=== PATIENT | female | born 1990 | race Caucasian/White ===

== ENCOUNTER → 2016-11-29 | Outpatient (CLI) | payer BC ==
--- NOTE | 2016-11-29 09:40 | DI ---
EXAM: CERVICAL SPINE 4 OR 5 VIEWS DATE: 11/29/2016 12:00 AM ENCOUNTER: Initial INDICATION: ITS.REASON: M43.6 TORTICOLLIS, M54.02 NECK PAIN COMPARISON: None available. TECHNIQUE: 5 views of the cervical spine were obtained. FINDINGS: The spine is visualized to the level of the cervicothoracic junction on the lateral radiograph. There is normal cervical lordosis. Bony mineralization is normal. The odontoid is intact. The atlantodens interval is maintained. There is normal alignment of the lateral masses of C1 and C2. The vertebral bodies are of normal height and alignment. No cervical ribs. Mild degenerative disc disease and uncovertebral hypertrophy without significant neural foraminal narrowing appreciated radiographically. The prevertebral soft tissues are within normal limits. The visualized lung apices are clear. IMPRESSION: Mild degenerative spondylosis with no acute osseous abnormality appreciated radiographically. .
== END ==
LOC: IMA 09:07
PROVIDERS: ATTEND Family Medicine
DX: M43.6 Torticollis (principal); M54.2 Cervicalgia